=== PATIENT | female | born 1955 | race Caucasian/White ===

== ENCOUNTER → 2016-07-23 | Outpatient (CLI) | payer BC ==
[~2016-07-23] MED LIST: ESCI10TA PO; LSNP20T PO; ZOLP5TAB PO
--- NOTE | 2016-07-23 18:05 | Diagnostic Imaging Report ---
DIGITAL MAMMO BILAT DIAGNOSTIC COMPARISON: Multiple mammograms dating back to 02/11/2013. INDICATION: Routine screening mammogram as well as diagnostic mammogram to evaluate right breast microcalcifications. TECHNIQUE: Digital diagnostic mammography of bilateral breast was performed with a computer-aided detection (CAD) system. Spot magnification views of the right breast were also obtained. FINDINGS: The breasts are heterogeneously dense. No new dominant mass, suspicious microcalcifications, or architectural distortion to indicate malignancy. The monomorphic grouped microcalcifications in the posterior inner quadrant of the right breast have not changed in the interim. IMPRESSION: Stable grouped microcalcifications in the posterior right inner breast, likely of benign etiology. These have been stable since 2014 and therefore will require no dedicated diagnostic imaging unless there is a change at screening mammogram. Recommend patient return to screening mammography in 12 months. ACR BI-RADS Category 2: Benign findings. Result letter will be mailed to the patient. Note: At least 10% of breast cancer is not imaged by mammography. Dictated by: Dictated on workstation # [id number]
== END ==
LOC: RAD 10:56
PROVIDERS: ATTEND Family Medicine
DX: R92.1 Mammographic calcification found on diagnostic imaging of breast (principal)